=== PATIENT | male | born 1955 ===

== ENCOUNTER 2018-12-09 13:57 | Outpatient (CLI) | payer MEDICARE | END 2018-12-09 13:58 | disposition short-term general hospital (02) | LOC: EMS 13:57 | PROVIDERS: ATTEND Surgery | DX: R07.81 Pleurodynia (principal); M54.2 Cervicalgia; R06.02 Shortness of breath; R10.9 Unspecified abdominal pain; V48.5XXA Car driver injured in noncollision transport accident in traffic accident, initial encounter; Y92.410 Unspecified street and highway as the place of occurrence of the external cause | CPT/HCPCS: A0425; A0427 ==